=== PATIENT | male | born 1990 | race Caucasian/White ===

== ENCOUNTER 2017-07-14 13:07 | Emergency (ER) | payer SELFPAY ==
--- NOTE | 2017-07-14 21:50 | CR ---
DATE OF SERVICE: 07/14/2017 CLINICAL DATA: Ankle injury-fall. LEFT ANKLE: There is moderate soft tissue swelling over the lateral malleolus. There is a minimally displaced oblique fracture through the distal fibular diametaphysis. No other acute abnormalities. IMPRESSION: Fracture distal fibula. [id number] [facility]
--- NOTE | 2017-07-14 23:28 | ER ---
HISTORY OF PRESENT ILLNESS: A 27-year-old male here with complaints of falling and injuring the left ankle. He has noticed a lot of swelling and the pain is involving that area and just proximal to it, which is the lateral malleolus. The patient denies any other injuries. He states it is very hard to put any weight on his left foot at all. [place] they [place]. OBJECTIVE: GENERAL APPEARANCE: The patient is awake and alert. No obvious respiratory distress. VITAL SIGNS: Reviewed as listed. EXTREMITIES: On examining the left ankle reveals moderate swelling around the lateral malleolus. The skin is intact. There is definite tenderness just above this area involving the distal fibula. There is no tenderness with palpation of the anterior or medial aspect of the ankle joint. The foot and toes are normal in appearance. LAB AND X-RAY: X-ray of the left ankle was obtained. There is a distal fibula fracture with mild displacement. DIAGNOSIS: Distal fibula fracture. TREATMENT PLAN: A walking Cam will be given to the patient. He is also to be on crutches with just touchdown weightbearing at this time. RICE therapy was discussed. I will give him some hydrocodone tablets to take as needed for pain. I advised the patient that if he is very careful and has help, he can go back to fishing as long as he is not on any slippery ice. [place] in the fish [place], they have a big permanent fish house. He will be able to sit with his foot elevated on a dry surface. I advised patient to follow up his regular doctor when he gets back home next week for recheck. He has no further questions. LEONCIO/ANDI /[id number]
== END 2017-07-14 15:25 | disposition home or self-care (01) ==
LOC: LB.ED 13:07
DX: S82.832A Other fracture of upper and lower end of left fibula, initial encounter for closed fracture (principal); W19.XXXA Unspecified fall, initial encounter
CPT/HCPCS: 73610-LT; 99283